=== PATIENT | female | born 1955 | race Two or more races ===

== ENCOUNTER 2022-07-25 19:54 | Emergency (ER) | payer OTHER ==
[~2022-07-25] VITALS: Ht 162.6 cm; Wt 76.2 kg
[2022-07-26] MEDS ORDERED: KETO10TA2 PO (00:59)
[2022-07-26] MEDS ORDERED: DOLOGESIC 500-1 EACH PO (01:12)
== END 2022-07-26 01:16 ==
LOC: ER 19:54
DX: M25.521 Pain in right elbow (principal); W01.0XXA Fall on same level from slipping, tripping and stumbling without subsequent striking against object, initial encounter; Y93.89 Activity, other specified; Y92.63 Factory as the place of occurrence of the external cause